=== PATIENT | male | born 2000 | race Caucasian/White ===

== ENCOUNTER 2025-01-18 18:55 | Emergency (ER) | payer OTHER, MEDICAID, SELFPAY ==
--- NOTE | ~2025-01-18 | XR_ITS ---
EXAM: XR lumbar spine 2-3V DATE: 01/18/2025 19:31 HISTORY: low back pain . COMPARISON: None available. FINDINGS: 5 nonrib-bearing lumbar-type vertebral bodies. Mild spinal asymmetry. Block fusion at T12- L1 Pedicles intact. Normal vertebral body alignment. Vertebral body heights preserved. Disc spaces ma intained. Normal facets and posterior elements. No fracture or dislocation. IMPRESSION: No acute osseous finding in the lumbar spine. Reviewed, dictated and finalized at location K.
[2025-01-18 19:12] VITALS: BP 144/85; PULSE 88; RESP 20; TEMP 36.7; O2SAT 100
--- NOTE | 2025-01-18 19:41 | ED.GENADULT ---
HPI - General Adult General Chief complaint: Back Pain/Injury Stated complaint: back pain Source: patient Mode of arrival: ambulatory Limitations: no limitations History of Present Illness HPI narrative: Patient presents for evaluation of low back pain. Symptom onset 2 days ago. He was cleaning at the time of symptom onset but denies a specific injury or movement that induced his pain. He has had similar symptoms in the past that are quite transient and resolved without intervention or investigation from a diagnostic standpoint. He has had persistent pain since that time which prompted him to come in today. Pain radiates into the left thigh. He denies bladder/bowel incontinence, saddle anesthesia, or any paresthesias whatsoever. He rates his pain as 5/10 in severity. Related Data Home Medications ?Medication ?Instructions ?Recorded ?Confirmed ?Last Taken ?Type brexpiprazole 3 mg tablet (Rexulti) mg 01/18/25 Unknown History buspirone 30 mg tablet mg 01/18/25 Unknown History dextroamphetamine-amphetamine 20 01/18/25 Unknown History mg tablet fluoxetine 40 mg capsule mg 01/18/25 Unknown History prazosin 1 mg capsule mg 01/18/25 Unknown History Allergies Allergy/AdvReac Type Severity Reaction Status Date / Time No Known Allergies Allergy Unverified 01/18/25 19:16 Review of Systems Review of Systems: CONSTITUTIONAL: Denies fever, chills, or sweats. EYES: Denies visual changes, redness, or discharge. ENT: Denies rhinorrhea, congestion, sore throat, or otalgia. CARDIOVASCULAR: Denies chest pain, palpitations, or edema. RESPIRATORY: Denies cough or dyspnea. GASTROINTESTINAL: Denies abdominal pain, nausea, vomiting, or diarrhea. GENITOURINARY: Denies dysuria or hematuria. SKIN: Denies rash or itching. MUSCULOSKELETAL: Reports low back pain with radiation to the left thigh. NEUROLOGIC: Denies headache, numbness, dizziness, or weakness. PSYCHIATRIC: Denies anxiety or depression. [facility] Past Medical History Medical History Depression Surgical History Surgical History No pertinent past surgical history Family History Family History Mother Family history non-contributory Social History Social History Living arrangements: with family Gender identity (if verbalized by the patient): Male Spiritual care concerns: No Exam Narrative: GENERAL: Well-appearing, well-nourished, and in no acute distress. HEAD: Normocephalic, atraumatic. EYES: PERRLA and EOMI. ENT: Nares clear, no rhinorrhea or epistaxis. Mucous membranes moist. Oropharynx without tonsillar hypertrophy exudate or other lesions. Bilateral TMs pearly tinoco nonbulging NECK: Supple. No adenopathy or masses. No carotid bruits or JVD CHEST: Clear to auscultation. No respiratory distress. No wheezes rales or rhonchi HEART: Regular rate and rhythm. No murmur heard. Normal peripheral pulses. ABDOMEN: Soft, nontender, nondistended, normal active bowel sounds. BACK: There is tenderness diffusely in the lumbar spinal region. EXTREMITIES: Normal range of motion. No edema. SKIN: Warm, dry, no rash. NEURO: No focal deficits. Alert and oriented x3. PSYCH: Normal mood and affect. Course Course Emergency Course: This is a 24-year-old male who presented for evaluation of low back pain. X-ray of lumbar spine was negative. Exam consistent with strain. Will discharge with Medrol Dosepak and Flexeril. Application of warm moist heat may help. Follow up with primary provider. Go to the ER for worsening symptoms. Patient in agreement with plan of care. Level of Care: Express Care Visit Vital Signs Vital signs: Vital Signs Temperature 36.7 C 01/18/25 19:12 Pulse Rate 88 01/18/25 19:12 Respiratory Rate 20 01/18/25 19:12 Blood Pressure 144/85 H 01/18/25 19:12 Pulse Oximetry 100 01/18/25 19:12 Oxygen Delivery Room Air 01/18/25 19:12 Temperature 36.7 C 01/18/25 19:12 Pulse Rate 88 01/18/25 19:12 Respiratory Rate 20 01/18/25 19:12 Blood Pressure 144/85 H 01/18/25 19:12 Pulse Oximetry 100 01/18/25 19:12 Oxygen Delivery Room Air 01/18/25 19:12 Medical Decision Making Vital Signs Vital Signs: Vital Signs Temperature 36.7 C 01/18/25 19:12 Pulse Rate 88 01/18/25 19:12 Respiratory Rate 01/18/25 19:12 Blood Pressure 144/85 H 01/18/25 19:12 Pulse Oximetry 100 01/18/25 19:12 Oxygen Delivery Room Air 01/18/25 19:12 Temperature 36.7 C 01/18/25 19:12 Pulse Rate 88 01/18/25 19:12 Respiratory Rate 01/18/25 19:12 Blood Pressure 144/85 H 01/18/25 19:12 Pulse Oximetry 100 01/18/25 19:12 Oxygen Delivery Room Air 01/18/25 19:12 Imaging Data Radiologist's impression: EXAM: XR lumbar spine 2-3V DATE: 01/18/2025 19:31 HISTORY: low back pain . COMPARISON: None available. FINDINGS: 5 nonrib-bearing lumbar-type vertebral bodies. Mild spinal asymmetry. Block fusion at T12-L1 Pedicles intact. Normal vertebral body alignment. Vertebral body heights preserved. Disc spaces maintained. Normal facets and posterior elements. No fracture or dislocation. IMPRESSION: No acute osseous finding in the lumbar spine. Discharge Plan Discharge Clinical Impression: Low back strain Patient Disposition: Home Condition: Stable Instructions: Antibiotic Form, Acute Low Back Pain (ED) Additional Instructions: EPSOM SALTS BATHS MAY HELP APPLICATION OF WARM MOIST HEAT MAY HELP Patient Language: Slovak Prescriptions: New methylprednisolone [Medrol (Yaw)] 4 mg tablets,dose pack See Rx Instructions .ROUTE .COMPLEX Qty: 21 0RF Rx Instructions: for 6 days cyclobenzaprine 10 mg tablet 10 mg PO TID PRN (Reason: muscle spasm) Qty: 15 0RF No Action fluoxetine 40 mg capsule prazosin 1 mg capsule buspirone 30 mg tablet dextroamphetamine-amphetamine 20 mg tablet Rexulti 3 mg tablet Follow-up/Referrals: Sloan Waldrop MD [Physician] - Time of Disposition: 19:25
== END 2025-01-18 20:15 | disposition home or self-care (01) ==
PROVIDERS: Emergency Provider Nurse Practitioner
DX: S39.012A Strain of muscle, fascia and tendon of lower back, initial encounter (principal); X58.XXXA Exposure to other specified factors, initial encounter
CPT/HCPCS: 72100; 99203; G0463